=== PATIENT | female | born 1975 | race American Indian/Alaskan Native ===

== ENCOUNTER 2017-02-19 06:50 | Inpatient (IN) | payer OTHER ==
[2017-02-04 11:37] VITALS: BMI 43.8
[2017-02-19 07:49] LABS: HEMATOCRIT 27.2 % (34.0-47.0); MEAN CELL VOLUME 74.9 fl (81.0-99.0); MEAN CORPUSCULAR HEMOGLOBIN 22.8 pg (27.0-31.0); MEAN CORPUSCULAR HGB CONC 30.4 g/dL (33.0-37.0); RED CELL DISTRIBUTION WIDTH 24.5 % (11.5-14.5); WHITE BLOOD COUNT 10.1 K/uL (4.8-10.8)
[2017-02-19 08:04] LABS: BLOOD UREA NITROGEN 7 mg/dl (7-17); CALCIUM 8.8 mg/dL (8.4-10.2); CARBON DIOXIDE 25 mmol/L (22-30); CHLORIDE 105 mmol/L (98-107); GFR AFRICAN-AMERICAN > 60; GLUCOSE,RANDOM 99 mg/dL (65-105); POTASSIUM 3.9 MMOL/L (3.6-5.0); SODIUM 140 mmol/l (132-148)
[2017-02-19] MEDS ORDERED: Propofol 10 mg/ml Inj (20 ML) ONE (09:36)
[2017-02-19] MEDS ORDERED: Midazolam 2 MG/2 ML VIAL ONE (09:36)
[2017-02-19] MEDS ORDERED: Rocuronium 10 mg/ml (5 ml) ONE (09:36)
[2017-02-19] MEDS ORDERED: Succinylcholine 200 mg/10 ml Inj IV ONE (09:37)
[2017-02-19] MEDS ORDERED: Neostigmine Methylsulfate 3mg/3ml Syringe IV ONE (09:37)
[2017-02-19] MEDS ORDERED: Sevoflurane - Inhalation Anesthetic Liq (250 ml) ONE (09:38)
[2017-02-19] MEDS ORDERED: Lactated Ringer's 1,000 ML IV ONE ×4 (09:55→14:45)
[2017-02-19] MEDS ORDERED: ePHEDrine 50 mg/ml Inj ONE (10:17)
--- NOTE | 2017-02-19 11:04 | OP ---
PROCEDURE DATE: 02/19/2017 PREOPERATIVE DIAGNOSES: Fibroid uterus and possible ureteral injury. POSTOPERATIVE DIAGNOSES: Fibroid uterus and possible ureteral injury. PROCEDURE: Cystoscopy, insertion of double-J stents. PROCEDURE: The patient was asked to sign a detailed informed consent. She is aware of all risks and possible complications of ureteral stent insertion. The patient signed the informed consent was shree ling to accept the risks. She is aware that the purpose of the stents are to help the doctor prevent ureteral injury. The patient was brought into the room. She was draped and prepped in the usual ma nner. She received prophylactic antibiotics and a timeout was taken according to the rules and regul ations of [facility]. After careful draping and prepping and receiving antibiotics, the patient was cystoscoped with a #22 Olympus panendoscope. The bladder was entered atraumatically . There was no evidence of urothelial tumors or stones. Both ureteral orifices were localized. The left ureteral orifice was cannulized with a 0.038 guidewire that was passed up to the renal pelvis a nd an open-ended ureteral catheter was passed up the ureter. The same procedure was repeated on the right side. Both catheters deployed in proper position. The patient tolerated this very well. An E delman catheter was used to drain the bladder and the ureteral catheters were placed within the ports in the Larissa catheter. The patient tolerated ____ very well. Dr. Jovel was advised which cathete r is on the left and which catheter is on the right and she will remove the catheters after the surge ry. Tony Frederick MD cc: [id number] TT: 02/19/2017 11:03:32 tn
--- NOTE | 2017-02-19 12:18 | CP.PCM.HP ---
History of Present Illness - History of Present Illness History of Present Illness: Patient is a 41 yo with a history of HTN controlled on medication with uncontrolled menometrorhagia. Patient has failed medical therapy for 3 months, has symptomatic anemia with recent blood transfusion for Hgb of 5. Patient has fibroids and possible adenomyosis. Patient has been bleeding up to 20 pads a day since November 2016 and desires hysterectomy for definitive treatment after failing medical management. Present on Admission - Present on Admission Any Indicators Present on Admission: No History of DVT/PE: No History of Uncontrolled Diabetes: No Decubitus Ulcer Present: No Review of Systems - Review of Systems Systems not reviewed;Unavailable: Altered Mental Status - EENT Eyes: As Per HPI Nose/Mouth/Throat: As Per HPI - Breasts Breasts: As Per HPI - Cardiovascular Cardiovascular: As Per HPI - Genitourinary Genitourinary: As Per HPI - Reproductive: Female Reproductive:Female: As Per HPI, Heavy Menses, Abnormal Vaginal Bleeding - Neurological Neurological: As Per HPI - Hematologic/Lymphatic Hematologic: As Per HPI Past Patient History - Infectious Disease Hx of Infectious Diseases: None - Past Medical History & Family History Past Medical History?: Yes - Past Social History Smoking Status: Former Smoker - CARDIAC Hx Cardiac Disorders: Yes Hx Hypertension: Yes - PULMONARY Hx Respiratory Disorders: No - NEUROLOGICAL Hx Neurological Disorder: No - HEENT Hx HEENT Problems: Yes Other/Comment: Wears glasses - RENAL Hx Chronic Kidney Disease: No - ENDOCRINE/METABOLIC Hx Endocrine Disorders: No - HEMATOLOGICAL/ONCOLOGICAL Hx Blood Disorders: Yes Hx Anemia: Yes Hx Blood Transfusions: Yes Hx Blood Transfusion Reaction: No Other/Comment: Patient currently [place] [facility] [place] 3 blood transfusions, before surgery tomorrow - INTEGUMENTARY Hx Dermatological Problems: No Other/Comment: tatoos - MUSCULOSKELETAL/RHEUMATOLOGICAL Hx Musculoskeletal Disorders: No Hx Falls: No - GASTROINTESTINAL Hx Gastrointestinal Disorders: No - GENITOURINARY/GYNECOLOGICAL Other/Comment: Heavy Vaginal Bleeding - PSYCHIATRIC Hx Psychophysiologic Disorder: No Hx Substance Use: No - SURGICAL HISTORY Hx Surgeries: Yes Hx Section: Yes Hx Dilation and Curettage: Yes (With insertion IUD) Other/Comment: Myomectomy 12/09/2016 - ANESTHESIA Hx Anesthesia: Yes Hx Anesthesia Reactions: No Hx Malignant Hyperthermia: No Has any member of the family had a problem w/ anesthesia?: No Meds Allergies/Adverse Reactions: Allergies Allergy/AdvReac Type Severity Reaction Status Date / Time peanut Allergy ANAPHYLAXIS Verified 02/19/17 07:41 Physical Exam - Head Exam Head Exam: ATRAUMATIC - Eye Exam Eye Exam: Normal appearance, PERRL - Respiratory Exam Respiratory Exam: Clear to Auscultation Bilateral, NORMAL BREATHING PATTERN - Cardiovascular Exam Cardiovascular Exam: REGULAR RHYTHM - GI/Abdominal Exam GI & Abdominal Exam: Normal Bowel Sounds, Soft Additional comments: obese, non tender, no rebound, vertical previous incision - Extremities Exam Extremities exam: Positive for: normal inspection Results - Vital Signs Recent Vital Signs: Last Vital Signs Temp 99 F 02/19/17 08:00 Pulse 80 02/19/17 08:00 Resp 18 02/19/17 08:00 BP 122/68 02/19/17 08:00 Pulse Ox 96 02/19/17 08:00 - Labs Result Diagrams: 02/19/17 07:30 02/19/17 07:30 Labs: Laboratory Results - last 24 hr 02/19/17 02/19/17 02/19/17 07:30 07:30 07:30 WBC 10.1 RBC 3.63 L Hgb 8.3 L Hct 27.2 L MCV 74.9 L MCH 22.8 L MCHC 30.4 L RDW 24.5 H Plt Count 195 Sodium 140 Potassium 3.9 Chloride 105 Carbon Dioxide 25 Anion Gap 14 BUN 7 Creatinine 0.8 Est GFR ( Amer) > 60 Est GFR (Non-Af Amer) > 60 Random Glucose 99 Calcium 8.8 Blood Type A POSITIVE Antibody Screen Negative BBK History Checked Patient has bt Assessment & Plan - Assessment and Plan (Free Text) Assessment: A/P 41 yo for MONROE, B/L salpingectomy, possible oophorectomy 1. Patint for MONROE for definitive care of menometrohagia and symptomatic anemia. Patient consented for surgery, aware of risks of surgery including risk of bleeding, infection, damage to bowel, bladder, ureter. Patient to receive Ancef before surgery. Stents to be placed by Dr. Frederick before surgery 2. Patient to stay postoperatively in the hospital - Date & Time Date: 02/19/17 Time: 10:05 Decision To Admit - Pt Status Changed To: Hospital Disposition Of: Inpatient - Admit Certification Admit to Inpatient:: After my assessment, the patient will require hospitalization for at least two midnights. This is because of the severity of symptoms shown, intensity of services needed, and/or the medical risk in this patient being treated as an outpatient. - . Bed Request Type: Med/Surg Admitting Physician: Starr Jovel
[2017-02-19] MEDS ORDERED: DiphenhydrAMINE 50 mg/ml Inj IVP PRN (12:22)
[2017-02-19] MEDS ORDERED: HYDROmorphone 0.5 mg/0.5 ml ISec IVP PRN (12:26)
[2017-02-19] MEDS ORDERED: HYDROmorphone 0.5 mg/0.5 ml ISec IVP STA (12:52)
--- NOTE | 2017-02-19 13:25 | CARD ---
APPROVED REPORT EKG Measurement Heart [id number] <Conclusion> Normal sinus rhythm Normal ECG
[2017-02-19] MEDS ORDERED: HYDROmorphone 0.5 mg/0.5 ml ISec IVP ONE ×2 (13:30→13:42)
[2017-02-19 21:05] LABS: HEMATOCRIT 24.3 % (34.0-47.0); MEAN CELL VOLUME 75.1 fl (81.0-99.0); MEAN CORPUSCULAR HEMOGLOBIN 23.1 pg (27.0-31.0); MEAN CORPUSCULAR HGB CONC 30.8 g/dL (33.0-37.0); RED CELL DISTRIBUTION WIDTH 25.9 % (11.5-14.5); WHITE BLOOD COUNT 8.5 K/uL (4.8-10.8)
[2017-02-20] MEDS: Lactated Ringer's 1,000 ML IV SCH ×4 (02:05→20:53)
[2017-02-20] MEDS ORDERED: Lactated Ringer's 1,000 ML IV SCH (04:40)
--- NOTE | 2017-02-20 07:26 | PCM.SURG1 ---
Surgeon's Initial Post Op Note - Surgeon's Notes Surgeon: Otoniel Winery Cellar Hand: Delfina Type of Anesthesia: General Endo Anesthesia Administered By: staff Pre-Operative Diagnosis: Fibroid uterus/Request for stents Operative Findings: normal bladder Post-Operative Diagnosis: same as pre op Operation Performed: cysto bilat insert stents Specimen/Specimens Removed: na Estimated Blood Loss: EBL {In ML}: 0 Blood Products Given: N/A Drains Used: No Drains Post-Op Condition: Good Date of Surgery/Procedure: 02/19/17 Time of Surgery/Procedure: 09:30
[2017-02-20] MEDS ORDERED: Oxycodone/Acetaminophen 5/325 mg Tab PO PRN (09:02)
[2017-02-20] MEDS ORDERED: Simethicone 80 mg Chewtab PO PRN (09:03)
--- NOTE | 2017-02-20 09:20 | CP.PCM.PN ---
Subjective - Date & Time of Evaluation Date of Evaluation: 02/20/17 Time of Evaluation: 09:07 - Subjective Subjective: Patient is a 41 yo s/p MONROE, B/L salpingectomy POD #1. Patient denies CP, SOB, had fever over night of 101.1 Tmax, denies nausea, tolerating PO liquids, pain tolerable with POWER HAIR CLIPPER, +flatus, no vaginal bleeding, +deleon draining clear urine over 100/hr, minimal ambulation Objective - Vital Signs/Intake and Output Vital Signs (last 24 hours): Temp Pulse Resp BP Pulse Ox 101.1 F H 89 20 123/80 100 02/20/17 09:00 02/20/17 09:00 02/20/17 09:00 02/20/17 09:00 02/20/17 09:00 - Medications Medications: Current Medications Amlodipine Besylate (Norvasc) 5 mg PO QPM [facility] Last Admin: 02/19/17 18:35 Dose: Not Given Bisoprolol Fumarate (Zebeta) 5 mg PO QPM [facility] Last Admin: 02/19/17 18:35 Dose: Not Given Diphenhydramine HCl (Benadryl) 25 mg IVP Q6 PRN PRN Reason: Itching / Pruritus Hydrochlorothiazide (Hydrodiuril) 25 mg PO QPM [facility] Last Admin: 02/19/17 19:06 Dose: Not Given Lactated Ringer's (Lactated Ringer's) 1,000 mls @ 100 mls/hr IV .Q10H [facility] Ibuprofen (Motrin Tab) 600 mg PO Q6 PRN PRN Reason: Pain, Mild (1-3) Ondansetron HCl (Zofran Inj) 4 mg IVP Q8 PRN PRN Reason: Nausea/Vomiting Oxycodone/Acetaminophen (Percocet 5/325 Mg Tab) 1 tab PO Q4 PRN PRN Reason: Pain, moderate (4-7) Stop: 02/23/17 09:03 Oxycodone/Acetaminophen (Percocet 5/325 Mg Tab) 2 tab PO Q4 PRN PRN Reason: Pain, severe (8-10) Stop: 02/23/17 09:04 Simethicone (Mylicon Chew Tab) 80 mg PO TID PRN PRN Reason: Flatulence - Labs Labs: 02/19/17 20:30 02/19/17 07:30 - Constitutional Appears: Well, Non-toxic - Head Exam Head Exam: ATRAUMATIC - Eye Exam Eye Exam: Normal appearance - Respiratory Exam Respiratory Exam: NORMAL BREATHING PATTERN - Cardiovascular Exam Cardiovascular Exam: REGULAR RHYTHM - GI/Abdominal Exam GI & Abdominal Exam: Soft, Normal Bowel Sounds Additional comments: no rebound, tenderness around site of incision, incision clean/dry/intact, + yann, no gaurding, non-distended - Extremities Exam Extremities Exam: Normal Inspection Assessment and Plan - Assessment and Plan (Free Text) Assessment: A/P 41 yo s/p MONROE, B/L salpingectomy POD #1 1. Patient recovering well. Will discontinue POWER HAIR CLIPPER, start PO Percocet, Motrin for pain 2. Start Colace and Mylicon 3. Patient to start Soft and regular diet and ambulate, remove deleon and continue IVF at 100ml/hr 4. Patient had Tmax 101.1. O2 = 100%, VSS - patient encouraged to do spirometer every hour, will aggresive use spirometer and ambulate patient and monitor, if temperature persists, will send patient for CXR 5. CBC/CMP - patient received 1 unit of PRBC over night, will hold off on additional transfusion for now 6. SVDs until ambulation 7. Continue all other orders
[2017-02-20] MEDS ORDERED: Oxycodone/Acetaminophen 5/325 mg Tab ONE (09:25)
[2017-02-20] MEDS: Oxycodone/Acetaminophen 5/325 mg Tab PO PRN ×3 (09:32→21:47)
[2017-02-20 12:03] LABS: MEAN CELL VOLUME 75.9 fl (81.0-99.0); MEAN CORPUSCULAR HEMOGLOBIN 24.2 pg (27.0-31.0); MEAN CORPUSCULAR HGB CONC 31.8 g/dL (33.0-37.0); RED CELL DISTRIBUTION WIDTH 25.9 % (11.5-14.5); WHITE BLOOD COUNT 9.1 K/uL (4.8-10.8)
[2017-02-20 12:15] LABS: ALB/GLOB RATIO 1.1 (1.0-2.1); ALKALINE PHOSPHATASE 101 U/L (38-126); ALT/SGPT 72 U/L (9-52); AST/SGOT 44 U/L (14-36); BLOOD UREA NITROGEN 4 mg/dl (7-17); CALCIUM 8.6 mg/dL (8.4-10.2); CARBON DIOXIDE 25 mmol/L (22-30); CHLORIDE 104 mmol/L (98-107); GFR AFRICAN-AMERICAN > 60; GLUCOSE,RANDOM 114 mg/dL (65-105); POTASSIUM 3.7 MMOL/L (3.6-5.0); SODIUM 139 mmol/l (132-148); TOTAL PROTEIN 6.4 G/DL (6.3-8.2)
[2017-02-21] MEDS: Lactated Ringer's 1,000 ML IV SCH ×2 (00:49→07:01)
[2017-02-21] MEDS: ceFAZolin 2 GM in Sodium Chloride 0.9% 100 ML IVPB SCH ×2 (00:50→10:56)
[2017-02-21] MEDS: Oxycodone/Acetaminophen 5/325 mg Tab PO PRN (06:22)
[2017-02-21 07:55] VITALS: TEMP 98.6
--- NOTE | 2017-02-21 09:05 | RAD ---
HISTORY: Elevated Temp COMPARISON: No prior. TECHNIQUE: Chest PA and lateral FINDINGS: LUNGS: Linear atelectasis at both lung bases. PLEURA: No significant pleural effusion identified. No pneumothorax apparent. CARDIOVASCULAR: Normal. OSSEOUS STRUCTURES: No significant abnormalities. VISUALIZED UPPER ABDOMEN: Normal. OTHER FINDINGS: None. IMPRESSION: Atelectasis, subsegmental-linear. No discrete infiltrates or other suspicious pulmonary parenchymal findings.
[2017-02-21 11:58] VITALS: BP 128/87; PULSE 97; RESP 17; O2SAT 99
--- NOTE | 2017-02-21 12:14 | CP.PCM.PN ---
Subjective - Date & Time of Evaluation Date of Evaluation: 02/21/17 Time of Evaluation: 12:10 - Subjective Subjective: Patient is a 41 yo s/p MONROE, B/L salpingectomy POD #2 recovering well, denies CP , no SOB, no N/v, tolerating PO diet, ambulating well, no vaginal bleeding, abdominal pain tolerable, +flatus, +BM, voiding well Objective - Vital Signs/Intake and Output Vital Signs (last 24 hours): Temp Pulse Resp BP Pulse Ox 98.6 F 97 H 17 128/87 99 02/21/17 11:57 02/21/17 11:57 02/21/17 11:57 02/21/17 11:57 02/21/17 11:57 - Medications Medications: Current Medications Amlodipine Besylate (Norvasc) 5 mg PO QPM [facility] Last Admin: 02/20/17 19:16 Dose: Not Given Bisoprolol Fumarate (Zebeta) 5 mg PO QPM [facility] Last Admin: 02/20/17 18:00 Dose: Not Given Diphenhydramine HCl (Benadryl) 25 mg IVP Q6 PRN PRN Reason: Itching / Pruritus Hydrochlorothiazide (Hydrodiuril) 25 mg PO QPM [facility] Last Admin: 02/20/17 19:16 Dose: Not Given Lactated Ringer's (Lactated Ringer's) 1,000 mls @ 100 mls/hr IV .Q10H [facility] Last Admin: 02/21/17 07:01 Dose: Not Given Cefazolin Sodium 2 gm/ Sodium (Chloride) 100 mls @ 100 mls/hr IVPB Q8 [facility] Last Admin: 02/21/17 10:56 Dose: 100 mls/hr Ibuprofen (Motrin Tab) 600 mg PO Q6 PRN PRN Reason: Pain, Mild (1-3) Ondansetron HCl (Zofran Inj) 4 mg IVP Q8 PRN PRN Reason: Nausea/Vomiting Oxycodone/Acetaminophen (Percocet 5/325 Mg Tab) 1 tab PO Q4 PRN PRN Reason: Pain, moderate (4-7) Stop: 02/23/17 09:03 Oxycodone/Acetaminophen (Percocet 5/325 Mg Tab) 2 tab PO Q4 PRN PRN Reason: Pain, severe (8-10) Stop: 02/23/17 09:04 Last Admin: 02/21/17 06:22 Dose: 2 tab Simethicone (Mylicon Chew Tab) 80 mg PO TID PRN PRN Reason: Flatulence Last Admin: 02/20/17 15:00 Dose: 80 mg - Labs Labs: 02/20/17 11:30 02/20/17 11:30 - Head Exam Head Exam: NORMAL INSPECTION - Respiratory Exam Respiratory Exam: Clear to Ausculation Bilateral, NORMAL BREATHING PATTERN - Cardiovascular Exam Cardiovascular Exam: REGULAR RHYTHM, +S1, +S2 - GI/Abdominal Exam GI & Abdominal Exam: Soft, Normal Bowel Sounds Additional comments: non-distended, soft, obese, non-distended, incision clean/dry/intact, bandage changed, +yann - Extremities Exam Extremities Exam: Normal Inspection Assessment and Plan - Assessment and Plan (Free Text) Plan: A/P 41yo s/p MONROE, B/L salpingectomy POD #2 1. Patient for discharge today. Patient has been afebrile since last night. Patient s/p once dose of Ancef. CXR showed atelectasis. VSS, O2sat >97%, no SOB , no labored breathing, using incentive spirometry. 2. Patient otherwise recovering well. Pain tolerable with PO medication 3. discharge instructions reviewed, will discharge home
--- NOTE | 2017-02-21 15:37 | CP.SDSHP ---
Same Day Surgery H & P - Allergies Allergies: Allergies peanut Allergy (Verified 02/19/17 07:41) ANAPHYLAXIS - Current Medications Current Medications: Home Medication List Medication Instructions Recorded Confirmed Type Ibuprofen [Motrin Tab] 600 mg PO Q6 PRN #30 tab 02/21/17 Rx amLODIPine [Norvasc] 5 mg PO QPM #0 tab 02/21/17 Rx oxyCODONE/Acetaminophen [Percocet 2 tab PO Q4 PRN #40 tab 02/21/17 Rx 5/325 mg Tab] - Physical Exam Vital Signs: Vital Signs 02/21/17 02/21/17 07:54 11:57 Temperature 98.6 F 98.6 F Pulse Rate 91 H 97 H Respiratory 18 17 Rate Blood Pressure 118/77 128/87 O2 Sat by Pulse 97 99 Oximetry Short Stay Discharge - Short Stay Discharge Admitting Diagnosis/Reason for Visit: S/P MONROE, B/L SALPINGECTOMY Medications: Ibuprofen [Motrin Tab] 600 mg PO Q6 PRN #30 tab PRN Reason: Pain, Mild (1-3) oxyCODONE/Acetaminophen [Percocet 5/325 mg Tab] 2 tab PO Q4 PRN #40 tab PRN Reason: Pain, Severe (8-10) Instructions: Abdominal Hysterectomy (DC) Additional Instructions (Diet, Activity): F/U in office in 1 wk Call office if increased temp, fever over 100.4 or bleeding Progress Note/Discharge Note with Instructions: patient to follow up in 1 wk in the office call office if increased bleeding, pain, temp
--- NOTE | 2017-02-22 22:02 | OP ---
PROCEDURE DATE: 02/19/2017 SURGEON: Dr. Jovel. TRADING ANALYST: Dr. Kinney. PREOPERATIVE DIAGNOSES: Menometrorrhagia, fibroids and symptomatic anemia. PROCEDURE: Total abdominal hysterectomy and bilateral salpingectomy. POSTOPERATIVE DIAGNOSES: Menometrorrhagia, fibroids and symptomatic anemia. FINDINGS: A 15-week size uterus. ESTIMATED BLOOD LOSS: 100 mL. URINE OUTPUT: 100 mL. ANESTHESIA: General by Dr. Villar. TOTAL FLUID INPUT: 800. SPECIMEN: Uterus, cervix, and bilateral tubes. COMPLICATIONS: None. INDICATIONS: This is a 41-year-old , 2 previous C-sections, no other surgeries, presented multi ple times to the Emergency Room for symptomatic anemia. The patient has been having menometrorrhagia for 2 months. Was seeing a previous doctor who was treating her with medical therapy, which the pat ient was failing. The patient was had a Mirena inserted by this previous doctor and was on Megace th erapy. The patient had a previous D and C for an internal polyp as well and a prior endometrial biop sy and a D and C pathology had shown simply secretory endometrium, no hyperplasia. The patient had f irst presented in [facility] with a hemoglobin of 8 and feeling lightheaded; however, vit als were stable at this time. The patient has been bleeding for 2 months at this point, about 20 pad s a day. Her doctor still wanted to continue medical therapy at this point. The patient proceeded t o see me in the office where we discussed other types of treatment that I could offer her. The patie nt wanted to proceed with definitive treatment in the form of a hysterectomy. Risks of surgery were discussed with the patient including risks of bleeding, infection and damage to surrounding organs. The patient also had comorbidities such as obesity and previous surgeries and hypertension, which was well controlled. The patient understood that these comorbidities could increase her risks of surger y, but the patient at this point wanted definitive care for her symptoms. The patient began iron inf usion with the commercial real estate sales manager in order to improve her hemoglobin count and I also tried a Lupron inject ion in the interim while we were scheduling surgery to see if bleeding could stop. The patient began to continue bleeding much more after this point and proceeded to be admitted to another hospital whe n her hemoglobin went down to 5 and needed 3 units of blood 2 days prior to her prior to her surgery being scheduled. The patient had preoperative clearance by her primary care doctor and was discharge d from [facility] the night before after 3 units of blood prior to us doing the hyste rectomy procedure. It was also discussed with the patient the risks and benefits of keeping her ovaries if they looked t o be normal in pathology versus taking them out. The risk of removing ovaries at this stage in her l sebas and the risk of cardiac and subsequent bone risks opposed to the very, very low risk of ovarian p athology in her future considering that she has no family history, it was determined at this point at tempt to keep her ovaries since the patient is premenopausal and could continue to benefit from keepi ng her ovaries. The patient presented to [facility] for her scheduled surgery and consent again was revi ewed and signed with the patient the day of surgery. PROCEDURE: The patient was taken to the operating room, IV fluids were running, SCDs were placed isabel aterally to lower extremities. General anesthesia was obtained without difficulty. The patient was examined under anesthesia with the findings found to be noted as above, about a 15-week sized uterus. Prior to starting the surgery, Dr. Frederick, the Urologist was able to successfully place bilateral st ents in order for us to adequately identify the ureters during surgery. The patient was prepped and draped in dorsal supine position. A Correa catheter was inserted and the bladder was emptied. With a scalpel we went through the previous vertical incision. The incision was carried down through the s ubcutaneous fat with the Bovie. The fascia was incised and extended superiorly and anteriorly. With Allis clamps we tented up the underlying rectus muscles and carefully dissected superiorly and infer iorly with the scalpel. The peritoneum was entered bluntly and again the incision extended superiorl y and inferiorly with good visualization of underlying organs. No adhesions were noted and the intra abdominal cavity revealed there to be about a 15-week size uniformly globular uterus. We then were a ble to exteriorize the uterus out of the abdominal cavity with the LigaSure. The patient was placed in slight Trendelenburg position. Upward traction was applied to facilitate exposure and descent. T he round ligament was identified and grasped with the LigaSure device. We applied cautery and cut wi th the LigaSure device and the anterior leaf of the broad ligament was dissected down to the midline of the vesicouterine peritoneum. The bladder was dissected off the lower uterine segment and the cer vix with the Metzenbaum scissors and the Bovie. A window was created in the avascular area of the po sterior leaf. The ovarian ligament and fallopian tube were also clamped with the LigaSure device, wh ich we used to cautery and cut. We did this on both sides of the uterus. The uterine vessels were s keletonized and cauterized with the LigaSure device. The pedicles were cauterized and cut again with the LigaSure device down to the cardinal ligament and uterosacral ligaments, which we also used the LigaSure device to clamp, cauterize and cut. Curved Angelica clamps were placed at the angles of the v agina and the cervix was removed from the vaginal cuff with the curved scissors. The vaginal angle w as closed with a Angelica stitch and tied to the uterosacral ligaments to provide support to the vagina l cuff. The vaginal cuff was then closed with a continuous running stitch with good hemostasis noted . At that point, we irrigated the pelvis. We noticed some small bleeders where there were some mild adhesions noted that we had dissected down at the level by the ligaments. We placed a few 2-0 Vicry l stitches in order to tamponade and create hemostasis. We irrigated the pelvis again and overall th e cuff and all sutures appeared to be hemostatic. We turned our attention to the fallopian tubes whi ch were dissected off broad ligament with the LigaSure. All areas appeared to be hemostatic and tube s, uterus and cervix were sent to pathology. The patient was taken out of Trendelenburg. All instru ments were removed from the abdomen and counts were correct times 3. The fascia was closed with an 0 PDS looped suture, which we closed in a mass closure fashion. The skin was reapproximated with stap les. The patient was awoken out of anesthesia and taken to recovery room in stable condition. There were no other complications. Starr Jovel MD cc: [id number] TT: 02/22/2017 22:01:54 ascencion
== END 2017-02-21 15:07 | disposition home or self-care (01) | DRG 742 ==
LOC: H.OPSURG 06:50 → H.MEDSURG1 12:26
PROVIDERS: ADMIT Obstetrics & Gynecology; ATTEND Obstetrics & Gynecology
PROC: 0UT70ZZ Resection of Bilateral Fallopian Tubes, Open Approach (ICD-10-PCS; 2017-02-19)
PROC: 0T788DZ Dilation of Bilateral Ureters with Intraluminal Device, Via Natural or Artificial Opening Endoscopic (ICD-10-PCS; 2017-02-19)
PROC: 0UT90ZZ Resection of Uterus, Open Approach (ICD-10-PCS; principal; 2017-02-19 09:30)
PROC: 0UTC0ZZ Resection of Cervix, Open Approach (ICD-10-PCS; 2017-02-19 09:30)
PROC: 30233N1 Transfusion of Nonautologous Red Blood Cells into Peripheral Vein, Percutaneous Approach (ICD-10-PCS; 2017-02-20)
DX: D25.9 Leiomyoma of uterus, unspecified (principal); Z68.41 Body mass index [BMI] 40.0-44.9, adult; S37.10XA Unspecified injury of ureter, initial encounter; J98.11 Atelectasis; D50.0 Iron deficiency anemia secondary to blood loss (chronic); N92.1 Excessive and frequent menstruation with irregular cycle; I10 Essential (primary) hypertension; E66.9 Obesity, unspecified; X58.XXXA Exposure to other specified factors, initial encounter; Z87.891 Personal history of nicotine dependence; Z91.010 Allergy to peanuts; Y93.9 Activity, unspecified; Y92.9 Unspecified place or not applicable